=== PATIENT | female | born 1965 | race African-American/Black ===

== ENCOUNTER 2018-06-28 16:23 | Emergency (ER) | payer SELFPAY ==
[~2018-06-28] VITALS: Ht 154.9 cm; Wt 95.3 kg
[2018-06-28 16:41] LABS: BILIRUBIN,URINE NEGATIVE (NEG); CLARITY,URINE CLEAR; COLOR,URINE YELLOW; NITRITE,URINE NEGATIVE (NEG); PROTEIN,URINE 100 mg/dL (NEG-TRACE)
--- NOTE | 2018-06-28 16:43 | PHYS DOC ---
Past Medical History Past Medical History: Depression, Hypertension, Migraines Adult General Chief Complaint Chief Complaint: SHORTNESS OF BREATH HPI HPI Patient is a 52 year old female with a history of migraine headaches, hypertension, depression, who presents today to be evaluated for multiple complaints. Patient presents to the ED via EMS with police officers, patient was being arrested for writing bad checks, in the process she started complaining of multiple medical issues. Patient herself states she has a migraine headache which began this morning, rates the pain as 8 out of 10 describes the pain as throbbing, also complaining of shortness of breath for 2 days and left flank pain. Denies any urgency frequency, dysuria. Denies this being the worst headache in her life, she states her current migraine headache is consistent with her regular headaches. Denies any chest pain. Police officers pain the room. Review of Systems Review of Systems Constitutional: Denies fever or chills [] Eyes: Denies change in visual acuity, redness, or eye pain [] HENT: Denies nasal congestion or sore throat [] Respiratory: Reports shortness of breath. Denies cough Cardiovascular: No additional information not addressed in HPI [] GI: Denies abdominal pain, nausea, vomiting, bloody stools or diarrhea [] : Reports left flank pain. Denies dysuria or hematuria [] Musculoskeletal: Denies back pain or joint pain [] Integument: Denies rash or skin lesions [] Neurologic: Reports migraine headache, denies focal weakness or sensory changes [] All other systems were reviewed and found to be within normal limits, except as documented in this note. Current Medications Current Medications Current Medications Medications (Trade) Dose Ordered Sig/Cristiane Start Time Stop Time Status Last Admin Dose Admin Acetaminophen (Tylenol) 1,000 mg 1X ONCE 06/28/18 19:15 06/28/18 19:16 DC Albuterol/ Ipratropium (Duoneb) 3 ml 1X ONCE 06/28/18 17:00 06/28/18 17:01 DC 06/28/18 16:52 3 ML Dexamethasone Sodium Phosphate (Decadron) 10 mg 1X ONCE 06/28/18 17:00 06/28/18 17:01 DC 06/28/18 17:12 10 MG Info (CONTRAST GIVEN -- Rx MONITORING) 1 each PRN DAILY PRN 06/28/18 18:30 06/30/18 18:29 Iohexol (Omnipaque 300 Mg/ml) 100 ml 1X ONCE 06/28/18 18:30 06/28/18 18:31 DC 06/28/18 18:38 100 ML Ketorolac Tromethamine (Toradol 30mg Vial) 30 mg 1X ONCE 06/28/18 17:00 06/28/18 17:01 DC 06/28/18 17:11 30 MG Labetalol HCl (Normodyne Iv Push) 10 mg 1X ONCE 06/28/18 17:00 06/28/18 17:01 DC 06/28/18 17:04 10 MG Sodium Chloride 1,000 ml @ 1,000 mls/hr 1X ONCE 06/28/18 18:15 06/28/18 19:14 DC 06/28/18 18:13 1,000 MLS/HR Allergies Allergies Allergies Coded Allergies Type Severity Reaction Last Updated Verified cephalexin Allergy Mild hives 06/28/18 Yes Physical Exam Physical Exam Constitutional: Well developed, well nourished, no acute distress, non-toxic appearance. [] HENT: Normocephalic, atraumatic, bilateral external ears normal, oropharynx moist, no oral exudates, nose normal. [] Eyes: PERRLA, EOMI, conjunctiva normal, no discharge. [] Neck: Normal range of motion, no tenderness, supple, no stridor. [] Cardiovascular:Heart rate regular rhythm, no murmur [] Lungs & Thorax: Bilateral breath sounds clear to auscultation [] Abdomen: Bowel sounds normal, soft, no tenderness, no masses, no pulsatile masses. [] Skin: Warm, dry, no erythema, no rash. [] Back: No tenderness, slight left CVA tenderness. [] Extremities: No tenderness, no cyanosis, no clubbing, ROM intact, no edema. [] Neurologic: Alert and oriented X 3, normal motor function, normal sensory function, no focal deficits noted. Cranial nerves II through XII intact Psychologic: Affect normal, judgement normal, mood normal. [] Current Patient Data Vital Signs Vital Signs Date Time Temp Pulse Resp B/P (MAP) Pulse Ox O2 Delivery O2 Flow Rate FiO2 06/28/18 18:13 102 20 170/93 (118) 96 Room Air 06/28/18 16:24 98.4 98.4 Lab Values Laboratory Tests Test 06/28/18 16:24 06/28/18 17:00 Urine Collection Type Unknown Urine Color Yellow Urine Clarity Clear Urine pH 6.0 Urine Specific Struthers >=1.030 Urine Protein 100 mg/dL (NEG-TRACE) Urine Glucose (UA) Negative mg/dL (NEG) Urine Ketones (Stick) Negative mg/dL (NEG) Urine Blood Negative (NEG) Urine Nitrite Negative (NEG) Urine Bilirubin Negative (NEG) Urine Urobilinogen Dipstick 1.0 mg/dL (0.2 mg/dL) Urine Leukocyte Esterase Negative (NEG) Urine RBC 0 /HPF (0-2) Urine WBC Rare /HPF (0-4) Urine Squamous Epithelial Cells Many /LPF Urine Bacteria Many /HPF (0-FEW) Urine Mucus Marked /LPF Urine Opiates Screen Neg (NEG) Urine Methadone Screen Neg (NEG) Urine Barbiturates Neg (NEG) Urine Phencyclidine Screen Pos (NEG) Urine Amphetamine/Methamphetamine Neg (NEG) Urine Benzodiazepines Screen Neg (NEG) Urine Cocaine Screen Neg (NEG) Urine Cannabinoids Screen Neg (NEG) Urine Ethyl Alcohol Neg (NEG) White Blood Count 6.6 x10^3/uL (4.0-11.0) Red Blood Count 4.57 x10^6/uL (3.50-5.40) Hemoglobin 13.1 g/dL (12.0-15.5) Hematocrit 37.9 % (36.0-47.0) Mean Corpuscular Volume 83 fL (79-100) Mean Corpuscular Hemoglobin 29 pg (25-35) Mean Corpuscular Hemoglobin Concent 35 g/dL (31-37) Red Cell Distribution Width 13.2 % (11.5-14.5) Platelet Count 262 x10^3/uL (140-400) Neutrophils (%) (Auto) 67 % (31-73) Lymphocytes (%) (Auto) 27 % (24-48) Monocytes (%) (Auto) 5 % (0-9) Eosinophils (%) (Auto) 1 % (0-3) Basophils (%) (Auto) 0 % (0-3) Neutrophils # (Auto) 4.4 x10^3uL (1.8-7.7) Lymphocytes # (Auto) 1.8 x10^3/uL (1.0-4.8) Monocytes # (Auto) 0.3 x10^3/uL (0.0-1.1) Eosinophils # (Auto) 0.0 x10^3/uL (0.0-0.7) Basophils # (Auto) 0.0 x10^3/uL (0.0-0.2) D-Dimer (Nerissa) 0.80 ug/mlFEU (0.00-0.50) H Sodium Level 143 mmol/L (136-145) Potassium Level 4.0 mmol/L (3.5-5.1) Chloride Level 104 mmol/L (98-107) Carbon Dioxide Level 28 mmol/L (21-32) Anion Gap 11 (6-14) Blood Urea Nitrogen 15 mg/dL (7-20) Creatinine 0.9 mg/dL (0.6-1.0) Estimated GFR (Cockcroft-Gault) 66.3 BUN/Creatinine Ratio 17 (6-20) Glucose Level 180 mg/dL (70-99) H Calcium Level 9.6 mg/dL (8.5-10.1) Magnesium Level 1.7 mg/dL (1.8-2.4) L Total Bilirubin 0.2 mg/dL (0.2-1.0) Aspartate Amino Transferase (AST) 28 U/L (15-37) Alanine Aminotransferase (ALT) 51 U/L (14-59) Alkaline Phosphatase 116 U/L (46-116) Troponin I Quantitative < 0.017 ng/mL (0.000-0.055) XJ-Dwf-D-Type Natriuretic Peptide 15 pg/mL (0-124) Total Protein 8.1 g/dL (6.4-8.2) Albumin 3.7 g/dL (3.4-5.0) Albumin/Globulin Ratio 0.8 (1.0-1.7) L Lipase 144 U/L (73-393) Thyroid Stimulating Hormone (TSH) < 0.007 uIU/mL (0.358-3.74) L Ethyl Alcohol Level < 10 mg/dL (0-10) Laboratory Tests 06/28/18 17:00 Laboratory Tests 06/28/18 17:00 EKG EKG Interpreted by Dr. Luque sinus rhythm heart rate 99 no STEMI Radiology/Procedures Radiology/Procedures []PROCEDURE: CT ANGIOGRAPHY CHEST CTA of the chest with contrast, 06/28/2018: HISTORY: Shortness of breath, tachycardia, elevated d-dimer Multidetector CT imaging was performed following an IV bolus injection of iodinated contrast material. Multiplanar reconstructions were produced including coronal MIP images. The degree of opacification of the central pulmonary arteries is suboptimal due to technical factors. No filling defects are seen in the main, lobar or segmental pulmonary arteries to suggest pulmonary emboli. Smaller pulmonary arteries were less well visualized. There are pulsation type artifacts related to the main pulmonary artery and the aorta. No mediastinal or hilar adenopathy is evident. No pulmonary infiltrate is seen. There is no evidence of pleural fluid. IMPRESSION: No CT evidence of central pulmonary emboli. RS Compliance Statement: One or more of the following individualized dose reduction techniques were utilized for this examination: 1. Automated exposure control 2. Adjustment of the mA and/or kV according to patient size 3. Use of iterative reconstruction technique Electronically signed by: Lamberto Chris MD (06/28/2018 7:23 PM) [facility] DICTATED and SIGNED BY: LAMBERTO CHRIS MD DATE: 06/28/181906 Course & Med Decision Making Course & Med Decision Making Pertinent Labs and Imaging studies reviewed. (See chart for details) This is a 52-year-old female patient presenting to the ED today to be evaluated , patient was being arrested for writing bad checks when she started having medical complaints including shortness of breath for 2 days, headache since this morning and left flank pain. Upon arrival to the ED EKG was done which was negative, chest x-ray interpreted by Dr. Luque was also negative. Drug screen was noted for PCP. CBC with with normal WBC, no acute findings, CMP with no acute findings. Troponin is normal. D -dimer was 0.80, CTA chest was obtained which is negative. Urine analysis is also negative for any acute findings. Vitals on arrival to the ED temperature was 98.4, heart rate 122, respiration 20 room air, O2 sats 97%, blood pressure 185/102, patient was given IV fluids, labetalol Decadron and Toradol for her headache. Blood pressure came down was low as 151/82 with a heart rate in the 100s. She requested something for pain and later, we offered her Tylenol, she refused Results will come indicated to patient. She'll be discharged to police custody. Dragon Disclaimer Dragon Disclaimer This electronic medical record was generated, in whole or in part, using a voice recognition dictation system. Departure Departure Impression: Primary Impression: Shortness of breath Additional Impressions: Migraine Acute flank pain Disposition: HOME, SELF-CARE Condition: STABLE Patient Instructions: Flank Pain, Migraine Headache, Shortness of Breath Additional Instructions: You were evaluated in the emergency room, your workup including labs, urine, CTA chest, chest x-ray, EKG, troponin were negative for any acute findings. Please follow-up with your own doctor in the next 1-2 weeks. You can take Tylenol or Motrin for pain. Problem Qualifiers Additional Impressions: Migraine Migraine type: unspecified Status migrainosus presence: without status migrainosus Intractability: not intractable Qualified Codes: G43.909 - Migraine, unspecified, not intractable, without status migrainosus EMERALD OLMSTEAD APRN Jun 28, 2018 16:43
[2018-06-28 16:46] LABS: AMPHETAMINE/METHAMPHETAMINE NEG (NEG); BARBITURATES NEG (NEG); BENZODIAZEPINES NEG (NEG); CANNABINOIDS NEG (NEG); COCAINE NEG (NEG); METHADONE NEG (NEG); OPIATES NEG (NEG); PHENCYCLIDINE POS (NEG)
[2018-06-28] MEDS ORDERED: IPRATRPIUM/ALBUTEROL 0.5/2.5MG 3 ML NEBU. NEB ONE (17:00)
[2018-06-28] MEDS ORDERED: LABETALOL 20 MG/4 ML DISP.SYRIN. IVP ONE (17:00)
[2018-06-28] MEDS ORDERED: KETOROLAC 30 MG/ML VIAL. IV ONE (17:00)
[2018-06-28] MEDS ORDERED: DEXAMETHASONE SOD PHOS 20 MG/5 ML VIAL. IV ONE (17:00)
[2018-06-28 17:05] LABS: BACTERIA,URINE MANY /HPF (0-FEW); RBC,URINE 0 /HPF (0-2); SQUAMOUS EPITHELIAL CELL,UR MANY /LPF; WBC,URINE RARE /HPF (0-4)
[2018-06-28 17:17] LABS: BASO % 0 % (0-3); EOS % 1 % (0-3); HEMATOCRIT 37.9 % (36.0-47.0); HEMOGLOBIN 13.1 g/dL (12.0-15.5); LYMPH # 1.8 x10^3/uL (1.0-4.8); LYMPH % 27 % (24-48); MEAN CORPUSCULAR HEMOGLOBIN 29 pg (25-35); MEAN CORPUSCULAR HGB CONC 35 g/dL (31-37); MEAN CORPUSCULAR VOLUME 83 fL (79-100); MONO # 0.3 x10^3/uL (0.0-1.1); MONO % 5 % (0-9); NEUT # 4.4 x10^3uL (1.8-7.7); NEUT % 67 % (31-73); PLATELET COUNT 262 x10^3/uL (140-400); RED BLOOD COUNT 4.57 x10^6/uL (3.50-5.40); RED CELL DISTRIBUTION WIDTH 13.2 % (11.5-14.5); WHITE BLOOD COUNT 6.6 x10^3/uL (4.0-11.0)
[2018-06-28 17:31] LABS: CALCIUM 9.6 mg/dL (8.5-10.1); CREATININE 0.9 mg/dL (0.6-1.0); GFR 66.3
[2018-06-28 17:37] LABS: ALBUMIN 3.7 g/dL (3.4-5.0); ALBUMIN/GLOBULIN RATIO 0.8 (1.0-1.7); MAGNESIUM 1.7 mg/dL (1.8-2.4); TOTAL BILIRUBIN 0.2 mg/dL (0.2-1.0); TOTAL PROTEIN 8.1 g/dL (6.4-8.2)
[2018-06-28 18:13] VITALS: BP 170/93
[2018-06-28] MEDS ORDERED: IV NORMAL SALINE 1000ML BAG 1,000 ML IV ONE (18:15)
[2018-06-28] MEDS ORDERED: CONTRAST GIVEN. MC PRN (18:30)
[2018-06-28] MEDS ORDERED: IOHEXOL 300 MG/ML 100ML VIAL. IV ONE (18:30)
[2018-06-28] MEDS ORDERED: ACETAMINOPHEN 500 MG TABLET PO ONE (19:15)
--- NOTE | 2018-06-28 19:26 | RAD ---
CTA of the chest with contrast, 06/28/2018: HISTORY: Shortness of breath, tachycardia, elevated d-dimer Multidetector CT imaging was performed following an IV bolus injection of iodinated contrast material. Multiplanar reconstructions were produced including coronal MIP images. The degree of opacification of the central pulmonary arteries is suboptimal due to technical factors. No filling defects are seen in the main, lobar or segmental pulmonary arteries to suggest pulmonary emboli. Smaller pulmonary arteries were less well visualized. There are pulsation type artifacts related to the main pulmonary artery and the aorta. No mediastinal or hilar adenopathy is evident. No pulmonary infiltrate is seen. There is no evidence of pleural fluid. IMPRESSION: No CT evidence of central pulmonary emboli. PQRS Compliance Statement: One or more of the following individualized dose reduction techniques were utilized for this examination: 1. Automated exposure control 2. Adjustment of the mA and/or kV according to patient size 3. Use of iterative reconstruction technique Electronically signed by: Lamberto Chris MD (06/28/2018 7:23 PM) [facility]
--- NOTE | 2018-06-28 20:57 | RAD ---
Portable chest, 06/28/2018: HISTORY: Shortness of breath The heart size and pulmonary vascularity are normal. No pulmonary infiltrate is seen. There is no evidence of pleural fluid. IMPRESSION: No acute cardiopulmonary abnormality is detected. Electronically signed by: Lamberto Chris MD (06/28/2018 8:53 PM) [facility]
--- NOTE | 2018-06-29 04:12 | EKG ---
[facility] [address] [place] [address] Test Date: 2018-06-28 Test Time: 17:25:08 Pat Name: AZALEA SHIN Department: Room: Gender: F Wrister: : 1965 Requested By: EMERALD OLMSTEAD Order Number: [id number] Reading MD: Niels Suh Measurements Intervals [place] Rate: 99 P: 43 MA: 176 QRS: 0 QRSD: 72 T: 29 QT: 340 QTc: 442 Interpretive Statements SINUS RHYTHM LEFTWARD AXIS Electronically Signed On 07-04-2018 15:22:08 MEASUREMENT TECHNICIAN by Niels Suh
== END 2018-06-28 20:04 | disposition home or self-care (01) ==
LOC: ER 16:23 → EEVIPCON 16:23 → ER 20:04
DX: R06.02 Shortness of breath (principal); R10.9 Unspecified abdominal pain; G43.909 Migraine, unspecified, not intractable, without status migrainosus; F32.9 Major depressive disorder, single episode, unspecified; I10 Essential (primary) hypertension; Z88.1 Allergy status to other antibiotic agents
CPT/HCPCS: 36415; 71045; 71275; 80053; 80307; 81001; 83690; 83735; 83880; 84443; 84484; 85025; 85379; 87086; 93005; 94640; 96374; 96375; 99284; G0480; J1100; J1885; J3490; J7030; J7620; Q9967

== ENCOUNTER 2020-06-11 15:31 | Emergency (ER) | payer SELFPAY | END 2020-06-11 15:52 | disposition left against medical advice (07) | LOC: ER 15:31 | DX: R06.02 Shortness of breath (principal); Z53.21 Procedure and treatment not carried out due to patient leaving prior to being seen by health care provider ==